=== PATIENT | female | born 1950 | race Caucasian/White ===

== ENCOUNTER 2023-10-08 08:31 | Inpatient (IN) | payer MEDICARE, OTHER ==
[~2023-10-08] VITALS: Ht 152.4 cm; Wt 72.3 kg
[2023-10-08 09:30] VITALS: BP 131/86; TEMP 97.9
--- NOTE | 2023-10-08 09:30 | NUR ---
ADMISSION NOTES RECEIVED PATIENT AMBULATORY, A/O X4, SCHEDULED FOR ORAL SURGERY. ON ROOM AIR BREATHING EVEN AND UNLABORED, DENIES PAIN OR DISCOMFORT AT THIS TIME. IV ACCESS INSERTED ON RAC #18G SALINE LOCK, INTACT, PATENT AND FLUSHING WELL. ORIENTED TO ROOM AND USE OF CALL LIGHT. SKIN INTACT AND BELONGINGS LIST CHECKED AND ACCOUNTED FOR. SAFETY PRECAUTIONS IN PLACE, BED ALARM ON, BED LOCKED IN LOWEST POSITION. SIDE RAILS UP X2. CALL LIGHT WITHIN REACH. PLAN OF CARE ONGOING.
[2023-10-08] MEDS ORDERED: UBID100C13 PO (10:31)
[2023-10-08] MEDS ORDERED: CHOL100062 PO (10:31)
[2023-10-08] MEDS ORDERED: EMPA25TA PO (10:31)
[2023-10-08] MEDS ORDERED: GLYB5TAB7 PO (10:31)
[2023-10-08] MEDS ORDERED: FENTANYL PF 100MCG/2ML AMPUL ONE (10:31)
[2023-10-08] MEDS ORDERED: MULT-1160 PO (10:31)
[2023-10-08] MEDS ORDERED: ATOR20TA PO (10:31)
[2023-10-08] MEDS ORDERED: CALC-770 PO (10:31)
[2023-10-08] MEDS ORDERED: dexaMETHasone SOD PHOSPHATE 0 ML ONE (10:37)
[2023-10-08] MEDS ORDERED: VANCOMYCIN 1 GM VIAL ONE (10:38)
[2023-10-08] MEDS ORDERED: LIDOCAINE 2%-EPI 1:200,000 20 ML VIAL IJ ONE (10:38)
[2023-10-08] MEDS ORDERED: PROPOFOL 100 ML ONE (11:41)
[2023-10-08 13:30] VITALS: BP 121/80; TEMP 97.8; O2SAT 92
[2023-10-08] MEDS ORDERED: ONDANSETRON HCL/PF 4 MG/2 ML VIAL IVP PRN (13:30)
[2023-10-08] MEDS ORDERED: ACETAMINOPHEN 325 MG TABLET PO PRN (13:30)
[2023-10-08] MEDS ORDERED: HYDROMORPHONE 1 MG/1 ML DISP.SYRIN IV PRN (13:30)
--- NOTE | 2023-10-08 13:30 | NUR ---
RN NOTE PATIENT IS BACK FROM SURGERY. PATIENT ON O2 AT 2 LPM VIA NASAL CANNULA, NO BLEEDING NOTED, NO COMPLAINTS OF PAIN VERBALIZED. VITAL SIGNS CHECKED AND RECORDED
--- NOTE | 2023-10-08 13:40 | NUR ---
RN NOTE DR ANGEL MADE AWARE PATIENT BACK FROM SURGERY, VITAL SIGNS WNL, NO NEW ORDERS. PLAN OF CARE ONGOING
[2023-10-08 14:00] VITALS: BP 126/74; TEMP 97.5; O2SAT 95
[2023-10-08 14:30] VITALS: BP 129/78; TEMP 97.5; O2SAT 97
[2023-10-08] MEDS: IV NS 0.9% 1,000 ML IV PRN (16:34)
--- NOTE | 2023-10-08 19:13 | NUR ---
CLOSING NOTES PATIENT AWAKE ON BED,A/O X4, ON ROOM AIR BREATHING EVEN AND UNLABORED, DENIES PAIN OR DISCOMFORT AT THIS TIME. IV ACCESS RAC #18G INTACT, PATENT AND INFUSING WELL NS AT 30 ML/HOUR. NO BLEEDING NOTED, ICE CHIPS AND SUCTION AT BEDSIDE PRN. SAFETY PRECAUTIONS IN PLACE, BED ALARM ON, BED LOCKED IN LOWEST POSITION. SIDE RAILS UP X2. CALL LIGHT WITHIN REACH. ENDORSE PLAN OF CARE TO [employer] NURSE
--- NOTE | 2023-10-08 19:30 | NUR ---
MS SHREE INITIAL NOTES RECEIVED REPORT FROM AM NURSE MARILYN AND SEEN PATIENT IN HER ROOM AWAKE AND ALERT ORIENTED X4 SITTING ON HER BED WATCHING TV AT THIS TIME. DENIES ANY PAIN OR ANY DISCOMFORT. SHE STILL HAS IVF OF NS AT 30ML/HR INFUSING ON HER RIGHT AC GAUGE 18 PATENT ,INTACT AND FLUSHES WELL. PATIENT ABLE TO MAKE NEEDS KNOWN AND SHE ALSO CAN AMBULATE WITH SOME ASSISTANCE OF HER IV POLE. ENCOURAGE PATIENT TO USE THE CALL LIGHT IF SHE NEEDS SOME HELP OR NEED ASSISTANCE. KEPT HER WARM AND COMFORTABLE AT ALL TIMES. ICE WATER SERVE PER PT REQUESTED . TABLE AND CALL LIGHT AT REACH. WILL CONTINUE MONITORING.
[2023-10-08 20:26] VITALS: BP 143/74; TEMP 98.4; O2SAT 94
--- NOTE | 2023-10-09 07:05 | NUR ---
MS SALES REPRESENTATIVE ADDING MACHINES CLOSING NOTES PATIENT REMAINED STABLE ALL THROUGHOUT SHIFT. A/OX4 AND ABLE TO MAKE NEEDS KNOWN.SLEPT WELL . ON ROOM AIR TOLERATING AND SATING WELL AT 98%, BREATHING IS EVEN AND UNLABORED. SKIN IS DRY AND WARM TO TOUCH. IV ACCESS SITE ON RIGHT AC GAUGE 18 WITH IVF NS AT 30ML/HR INFUSING WELL, NO SIGNS OF INFILTRATION , INTACT AND PATENT.DENIES PAIN/DISCOMFORT AT THIS TIME. ENSURES SAFETY, BED ON LOWEST POSITION AND LOCKED. BED SIDE RAILS UP AND CALL LIGHT WITHIN REACH AT ALL TIMES. WILL ENDORSE TO AM NURSE FOR CONTINUITY OF CARE.
--- NOTE | 2023-10-09 07:30 | NUR ---
RN MS NOTES PT IN BED, AWAKE, ALERT AND ORIENTED, NO COMPLAINT OF PAIN, BREATHING PATTERN NORMAL AND NON LABORED, SEEN AND EXAMINED BY DR. CHANDLER, CLEARED FOR DISCHARGE, ORDER GIVEN, NOTED AND CARRIED OUT.
--- NOTE | 2023-10-09 09:32 | NUR ---
RN MS NOTES DISCHARGE INSTRUCTIONS PROVIDED TO PT, VERBALIZED UNDERSTANDING, PT AMBULATES IN HER ROOM WITH STEADY GAIT, BELONGINGS ACCOUNTED FOR, PICKED UP BY HER DAUGHTER, LEFT IN STABLE CONDITION.
== END 2023-10-09 13:24 | disposition home or self-care (01) | DRG 516 ==
LOC: DS 08:31 → MED 08:33
PROVIDERS: ADMIT Student in an Organized Health Care Education/Training Program; ATTEND Student in an Organized Health Care Education/Training Program
PROC: 0NSV04Z Reposition Left Mandible with Internal Fixation Device, Open Approach (ICD-10-PCS; principal; 2023-10-08)
PROC: 0NST04Z Reposition Right Mandible with Internal Fixation Device, Open Approach (ICD-10-PCS; 2023-10-08)
PROC: 0NUV07Z Supplement Left Mandible with Autologous Tissue Substitute, Open Approach (ICD-10-PCS; 2023-10-08)
PROC: 0NUT07Z Supplement Right Mandible with Autologous Tissue Substitute, Open Approach (ICD-10-PCS; 2023-10-08)
PROC: 0NBV0ZX Excision of Left Mandible, Open Approach, Diagnostic (ICD-10-PCS; 2023-10-08)
PROC: 0NBT0ZX Excision of Right Mandible, Open Approach, Diagnostic (ICD-10-PCS; 2023-10-08)
DX: S02.69XK Fracture of mandible of other specified site, subsequent encounter for fracture with nonunion (principal); T81.83XA Persistent postprocedural fistula, initial encounter; M27.2 Inflammatory conditions of jaws; D16.4 Benign neoplasm of bones of skull and face; E78.5 Hyperlipidemia, unspecified; I10 Essential (primary) hypertension; M27.49 Other cysts of jaw; X58.XXXD Exposure to other specified factors, subsequent encounter; Z90.710 Acquired absence of both cervix and uterus
CPT/HCPCS: 82962-TC; 88305-TC; 88311-TC; A4223; A4338; C1713; G0378; J1100; J1885; J2405; J2704; J3010; J3370; J3490; J7030

== ENCOUNTER 2024-03-17 06:05 | Inpatient (IN) | payer MEDICARE, OTHER ==
[~2024-03-17] VITALS: Ht 152.4 cm; Wt 72.6 kg
[~2024-03-17 06:05] MED LIST: ATOR20TA PO; CALC-770 PO; CHOL100062 PO; EMPA25TA PO; GLYB5TAB7 PO; MULT-1160 PO; UBID100C13 PO
[2024-03-17] MEDS ORDERED: LIDOCAINE 2%-EPI 1:100,000 30 ML VIAL ONE (06:56)
[2024-03-17] MEDS ORDERED: ANESTHESIA TRAY IN PYXIS 1 EA TRAY MC ONE (06:56)
[2024-03-17] MEDS ORDERED: dexaMETHasone SOD PHOSPHATE 2 ML ONE (06:57)
[2024-03-17] MEDS ORDERED: VANCOMYCIN 1 GM VIAL ONE (06:57)
[2024-03-17] MEDS ORDERED: OXYMETAZOLINE HCL NASAL SPRAY 30 ML BOTTLE NS ONE (06:57)
[2024-03-17] MEDS ORDERED: MIDAZOLAM HCL 2 MG/2ML VIAL ONE (07:12)
[2024-03-17] MEDS ORDERED: Magnesium 1 GM/2 ML VIAL ONE (07:12)
[2024-03-17] MEDS ORDERED: FENTANYL PF 100MCG/2ML AMPUL ONE (07:12)
[2024-03-17] MEDS ORDERED: FAMOTIDINE/PF INJ 20 MG/2 ML VIAL IV ONE (07:13)
[2024-03-17] MEDS ORDERED: ROCURONIUM BROMIDE 50 MG/5 ML ONE (07:46)
[2024-03-17] MEDS ORDERED: HYDROMORPHONE 1 MG/1 ML DISP.SYRIN IV PRN ×2 (09:00→10:00)
[2024-03-17] MEDS ORDERED: ONDANSETRON HCL/PF 4 MG/2 ML VIAL IVP PRN ×2 (09:00→10:00)
[2024-03-17] MEDS ORDERED: BLOOD SUGAR DIAGNOSTIC 1 EACH STRIP VI ONE (09:00)
[2024-03-17] MEDS: ACETAMINOPHEN 325 MG TABLET PO PRN (16:06)
[2024-03-17 16:36] VITALS: BP 132/91; TEMP 97.9; O2SAT 90
[2024-03-17 20:00] VITALS: BP 112/65; TEMP 98.2; O2SAT 94
[2024-03-17] MEDS: IV NS 0.9% 1,000 ML IV PRN (20:19)
[2024-03-17] MEDS: VANCOMYCIN 1 GM in IV D5W 250ml IV SCH (20:25)
[2024-03-18 08:39] VITALS: BP 109/63; TEMP 97.9; O2SAT 97
== END 2024-03-18 09:50 | disposition home or self-care (01) | DRG 497 ==
LOC: DS 06:05 → MED 09:33
PROVIDERS: ADMIT Internal Medicine; ATTEND Internal Medicine
PROC: 0NPW04Z Removal of Internal Fixation Device from Facial Bone, Open Approach (ICD-10-PCS; principal; 2024-03-17)
PROC: 0N5V0ZZ Destruction of Left Mandible, Open Approach (ICD-10-PCS; 2024-03-17)
PROC: 0N5T0ZZ Destruction of Right Mandible, Open Approach (ICD-10-PCS; 2024-03-17)
DX: T84.69XA Infection and inflammatory reaction due to internal fixation device of other site, initial encounter (principal); Y83.8 Other surgical procedures as the cause of abnormal reaction of the patient, or of later complication, without mention of misadventure at the time of the procedure; Y92.009 Unspecified place in unspecified non-institutional (private) residence as the place of occurrence of the external cause; E11.9 Type 2 diabetes mellitus without complications; E78.5 Hyperlipidemia, unspecified; I10 Essential (primary) hypertension; R91.8 Other nonspecific abnormal finding of lung field; D16.4 Benign neoplasm of bones of skull and face; M89.38 Hypertrophy of bone, other site; K13.79 Other lesions of oral mucosa; M27.40 Unspecified cyst of jaw
CPT/HCPCS: 82962-TC; 88300-TC; 88305-TC; 88311-TC; A4223; A4338; G0378; J1100; J2250; J2405; J2704; J3010; J3370; J3475; J3490; J7030; J7060